=== PATIENT | female | born 1980 | race Two or more races ===

== ENCOUNTER 2019-07-21 01:33 | Emergency (ER) | payer SELFPAY ==
[~2019-07-21] VITALS: Ht 157.5 cm; Wt 63.5 kg
--- NOTE | 2019-07-21 01:40 | NUR ---
PT MALIK FROM STREET FOR ALCOHOL INTOXICATION. FOUND LAYING DOWN ON SIDE WALK. PT OPENS EYES TO PAINFUL STIMULI. RESPIRATIONS EVEN AND UNLABORED. VITAL SIGNS STABLE. APPEARS DISSHEVELED. SKIN INTACT. NO ACUTE DISTRESS NOTED AT THIS TIME. PT PLACED ON MONITOR, WILL CONTINUE TO MONITOR
--- NOTE | 2019-07-21 05:51 | NUR ---
PT AWAKE. AAOX4. AMBULATORY WITH STEADY GAIT. MEDICALLY CLEARED FOR DISCHARGE.
--- NOTE | 2019-07-21 05:51 | NUR ---
Patient given written and verbal discharge instructions. Patient verbalizes understanding of instructions. Patient is ambulatory with steady gait. Refuses offer of intermediate placement. Patient given list of available shelters in surrounding area.
[2019-07-21 05:52] VITALS: BP 116/79
== END 2019-07-21 05:52 | disposition home or self-care (01) ==
LOC: ER 01:35
DX: F10.129 Alcohol abuse with intoxication, unspecified (principal); Y90.9 Presence of alcohol in blood, level not specified